=== PATIENT | male | born 1955 | race Caucasian/White ===

== ENCOUNTER 2017-08-01 14:48 | Emergency (ER) | payer BC ==
[2017-08-01 15:46] VITALS: BP 138/75; PULSE 65; RESP 18; TEMP 98.2
[2017-08-01] MEDS ORDERED: KETOROLAC 30 MG/ML 1 ML VIAL IM STA (16:28)
[2017-08-01] MEDS ORDERED: ORPHENADRINE 30 MG/ML 2 ML VIAL IM STA (16:28)
--- NOTE | 2017-08-01 16:55 | ED ---
Back Pain HPI - General Chief Complaint: Back Pain/Injury Stated Complaint: back pain Time Seen by Provider: 08/01/17 16:27 Source: patient, RN notes reviewed Limitations: no limitations - History of Present Illness Initial Comments: This is a 61-year-old male who presents to the emergency department with chief complaint of low back pain. Patient states that he has had on and off back pain since 2003. He states that he has had an exacerbation of his low back pain for the past one week. He states that it began as generalized low back pain but then localized to right paraspinal muscles yesterday. Patient states that the pain is sharp and stabbing. He states that last night he laid on the floor and it took him hours to get up. He states that lying on his back with this legs slightly elevated decreases the pain. Denies any radiation of pain down the legs. Denies any numbness or tingling. Denies any saddle paresthesias or loss of bladder or bowel function. Denies any specific injury or falls. Patient states that he has been taking Advil which provides relief. He tried to take naproxen but he had no relief with that. suggested using a heating pad but patient refused. Denies fever, chills, chest pain, shortness of breath, abdominal pain, nausea or vomiting, constipation or diarrhea, dysuria or hematuria, numbness or tingling, headache or vision changes. - Related Data Previous Rx's Medication Instructions Recorded Ibuprofen 600 mg PO Q6HR #30 tablet 08/01/17 Allergies Allergy/AdvReac Type Severity Reaction Status Date / Time No Known Allergies Allergy Verified 08/01/17 15:45 Review of Systems ROS Statement: Those systems with pertinent positive or pertinent negative responses have been documented in the HPI. ROS Other: All systems not noted in ROS Statement are negative. Past Medical History Past Medical History: Hypertension, Myocardial Infarction (PR) History of Any Multi-Drug Resistant Organisms: None Reported Past Surgical History: Appendectomy, Heart Catheterization With Stent Past Psychological History: No Psychological Hx Reported Smoking Status: Former smoker Past Alcohol Use History: Occasional Past Drug Use History: None Reported General Exam - General Exam Comments Initial Comments: General: Awake and alert, well-developed; in no apparent distress. Sitting comfortably on ED stretcher. HEENT: Head atraumatic, normocephalic. Pupils are equal, round and reactive to light. Extraocular movements intact. Neck: Supple. Normal ROM. Cardiovascular: Regular rate and rhythm. No murmurs, rubs or gallops. Chest symmetrical. Respiratory: Lungs clear to auscultation bilaterally. No wheezes, rales or rhonchi. Normal respiratory effort with no use of accessory muscles. Musculoskeletal: Normal range of motion. No bony point vertebral tenderness or SI joint tenderness. Tenderness on palpation of right paraspinal muscles. Sensation is intact. Pedal and posterior tibial pulses are 2+ equal and palpable bilaterally. Skin: [place], warm and dry without rashes or lesions. Neurological: Alert and oriented x3. CN II-XII grossly intact. Speech is fluent and answers are appropriate. No focal neuro deficits. Psychiatric: Normal mood and affect. No overt signs of depression or anxiety noted. Limitations: no limitations Course Vital Signs 08/01/17 15:43 Temperature 98.2 F Pulse Rate 65 Respiratory 18 Rate Blood Pressure 138/75 O2 Sat by Pulse 98 Oximetry Medical Decision Making - Medical Decision Making This is a 61-year-old male who presents to emergency department with chief complaint of low back pain. Patient received Toradol and Norflex while in the emergency department. He states he is feeling well. Tenderness is localized to right lumbar paraspinal muscles. X-ray was obtained revealing no acute abnormalities. Patient recently moved to the area so does not have a primary care provider. Patient will be provided with a referral to the on-call medical provider who is Dr. Dill. Recommended heating pad and ibuprofen for the next 2-3 days. He is to establish care as soon as possible. Patient is in agreement with plan and voices understanding. All questions were answered. - Radiology Data Radiology results: report reviewed X-ray lumbar spine findings: There is no fracture or malalignment. No focal skeletal findings. Mild multilevel degenerative facet changes are appreciated with only minimal degenerative disc changes appreciated. The soft tissues are unremarkable. Impression: No acute process. Disposition Clinical Impression: Strain of lumbar region Disposition: HOME SELF-CARE Condition: Good Instructions: Acute Low Back Pain (ED) Additional Instructions: Please establish care with a primary care provider within 1-[address] Dill is a local family practitioner. Please take medications as prescribed. Return to emergency department if symptoms should worsen or any concerns arise. Prescriptions: Ibuprofen 600 mg PO Q6HR #30 tablet Referrals: None,Stated [Primary Care Provider] - 1-2 days Wilbert Dill MD [STAFF PHYSICIAN] - 1-2 days Time of Disposition: 17:36
--- NOTE | 2017-08-01 17:20 | XR ---
PROCEDURE: XR lumbar spine 2 or 3V DATE AND TIME: 08/01/2017 5:06 PM REFERRING PHYSICIAN: Elana Abreu CLINICAL INDICATION: PHH, pain Lower back pain 2 weeks, without known injury. TECHNIQUE: Department protocol. COMPARISON: None FINDINGS: There is no fracture or malalignment. No focal skeletal findings. Mild multilevel degenerative facet changes are appreciated with only minimal degenerative disc change s appreciated. The soft tissues are unremarkable. IMPRESSION: NO ACUTE PROCESS.
== END 2017-08-01 17:43 | disposition home or self-care (01) ==
LOC: EC 14:48
DX: S39.012A Strain of muscle, fascia and tendon of lower back, initial encounter (principal); Z87.891 Personal history of nicotine dependence; X58.XXXA Exposure to other specified factors, initial encounter
CPT/HCPCS: 99283; 96372 ×2; 72100; J2360; J1885

== ENCOUNTER → 2018-10-29 | Outpatient (CLI) | payer BC ==
--- NOTE | 2018-10-30 20:01 | ECHOF ---
Referral Reason:I25.0 coronary artery disease MEASUREMENTS -------- HEIGHT: 182.9 cm WEIGHT: 93.9 kg BP: RVIDd: 3.1 cm (< 3.3) IVSd: 1.2 cm (0.6 - 1.1) LVIDd: 4.8 cm (3.9 - 5.3) LVPWd: 1.0 cm (0.6 - 1.1) IVSs: 1.5 cm LVIDs: 3.3 cm LVPWs: 1.6 cm LA Diam: 3.7 cm (2.7 - 3.8) LAESV Index (A-L): 27.29 ml/m Ao Diam: 3.1 cm (2.0 - 3.7) AV Cusp: 1.9 cm (1.5 - 2.6) LA Diam: 3.8 cm (2.7 - 3.8) EPSS: 0.1 cm MV E Yonatan: 0.46 m/s MV DecT: 263 ms MV A Yonatan: 0.59 m/s MV E/A Ratio: 0.78 RAP: 5.00 mmHg RVSP: 18.62 mmHg MV EF SLOPE: 63.46 mm/s (70 - 150) MV EXCURSION: 1.85 cm (> 18.000) FINDINGS -------- Sinus rhythm. This was a technically good study. The left ventricular size is normal. There is mild concentric left ventricular hypertrophy. The right ventricle is normal in size. The left atrial size is normal. The right atrial size is normal. Trace to mild aortic regurgitation. No mitral regurgitation. Mild tricuspid regurgitation present. There is no evidence of pulmonary hypertension. There is no pulmonic regurgitation present. The aortic root size is normal. There is no pericardial effusion. CONCLUSIONS -------- 1. There is mild concentric left ventricular hypertrophy. 2. The right ventricle is normal in size. 3. The left atrial size is normal. 4. The right atrial size is normal. 5. No mitral regurgitation. 6. Mild tricuspid regurgitation present. 7. There is no evidence of pulmonary hypertension. 8. There is no pulmonic regurgitation present. 9. The aortic root size is normal. 10. There is no pericardial effusion. CONTINUOUS LOFT OPERATOR: Luz Jesus RDCS
== END | disposition home or self-care (01) ==
LOC: RADECHMAIN 12:56
PROVIDERS: ATTEND Family Medicine
DX: I07.1 Rheumatic tricuspid insufficiency (principal); I25.10 Atherosclerotic heart disease of native coronary artery without angina pectoris
CPT/HCPCS: 93306